=== PATIENT | female | born 1980 | race Caucasian/White ===

== ENCOUNTER → 2023-11-27 16:57 | Outpatient (REF) | payer BC, SELFPAY | LOC: RAD 16:57 | PROVIDERS: ATTENDING PHYSICIAN Specialist; FAMILY PHYSICIAN Physician Assistant Medical | DX: N20.0 Calculus of kidney (principal) | CPT/HCPCS: 74176 ==

== ENCOUNTER → 2023-12-08 09:22 | Outpatient (REF) | payer BC, SELFPAY | LOC: MRI 3T 09:22 | PROVIDERS: ATTENDING PHYSICIAN Dentist Oral and Maxillofacial Surgery; FAMILY PHYSICIAN Physician Assistant Medical | DX: M26.621 Arthralgia of right temporomandibular joint (principal) | CPT/HCPCS: 70336 ==

== ENCOUNTER → 2024-04-18 09:55 | Outpatient (REF) | payer BC, SELFPAY | LOC: MRI 3T 09:55 | PROVIDERS: ATTENDING PHYSICIAN Neurological Surgery; FAMILY PHYSICIAN Physician Assistant Medical | DX: D32.9 Benign neoplasm of meninges, unspecified (principal) | CPT/HCPCS: 70553; A9575 ==

== ENCOUNTER → 2025-06-12 08:23 | Outpatient (REF) | payer BC, SELFPAY | LOC: MRI 3T 08:23 | PROVIDERS: ATTENDING PHYSICIAN Neurological Surgery; FAMILY PHYSICIAN Nurse Practitioner Family | DX: D32.9 Benign neoplasm of meninges, unspecified (principal) | CPT/HCPCS: 70553; A9575 ==